=== PATIENT | female | born 1980 | race Hispanic/Latino ===

== ENCOUNTER 2016-08-27 10:16 | Emergency (ER) | payer OTHER, MEDICARE ==
[~2016-08-27 10:16] MED LIST: ABILIFY 15MG15 MG PO; ABILIFY20 M1 PO; ADVAIR 250-501 EACH INH; ASPIRIN CHILDRE81 MG PO; ATIVAN1 M1 PO; BLM PO; CEFDINIR300 MG PO; CLEOCIN HCL150 M1 PO; CLINDAMYCIN HY300 MG PO; CLINORIL 200MG200 MG PO; DILAUDID2 M1 PO; ESCITALOPRAM OX20 MG PO; ESCITALOPRAM20 MG PO; HYDROXYZINE PAM50 M1 PO; HYDROXYZINE PAM50 MG PO; LANTUS SOL100 UNIT/1 SC; LANTUS SOLOS100 U/ML; LATUDA60 M1 PO; LIORESAL 10MG T10 MG PO; LISINOPRIL10 MG PO; LITHIUM CARBON450 M1 PO; LITHIUM CARBON450 MG PO; METFORMIN HCL1000 M1 PO; NASONEX17 GM NASB; NEURONTIN100 M1 PO; NEURONTIN300 MG; NEXIUM40 M1 PO; NOVOLOG FL100 UNIT/1 SC; OXYCODONE HCL5 M1 PO; PERCOCET 325 MG1 TA2 PO; PERCOCET 5-3251 EACH PO; SYMBICORT 160/41 PUF INH; SYMBICORT 16010.2 GM INH; TAMIFLU 75MG75 MG PO; VICODIN5-300 PO; VICTOZA 3-0.6 MG/0.1 SC; VICTOZA6 MG/ML SC; VISTARIL25 MG PO; XANAX0.5 MG PO
--- NOTE | 2016-08-27 11:12 | ED HEADACHE COMPLAINT ---
History of Present Illness General Chief Complaint: Headache Stated Complaint: MIGRAINE, ?LUMP ON HEAD, WEAKNESS Source: patient, old records Exam Limitations: no limitations Vital Signs & Intake/Output Vital Signs & Intake/Output Vital Signs Date Time Temp Pulse Resp B/P B/P Pulse O2 O2 Flow FiO2 Mean Ox Delivery Rate 08/27 1319 98.3 81 16 133/81 95 Room Air 08/27 1215 98.3 80 14 126/80 95 Room Air 08/27 1021 98.5 82 118/69 96 Room Air Allergies Coded Allergies: Penicillins (Mild, HIVES 09/14/15) aspirin (Mild, HIVES 09/14/15) ibuprofen (Mild, HIVES 09/14/15) Reconcile Medications Aripiprazole (Abilify) 20 MG TABLET 1 TAB PO QAM MENTAL HEALTH (Reported) Budesonide/Formoterol Fumarate (Symbicort 160-4.5 Mcg Inhaler) 160 MCG-4.5 MCG/ ACTUATION HFA.AER.AD 2 PUF INH BID ASTHMA (Reported) Escitalopram Oxalate 20 MG TABLET 1 TAB PO DAILY MENTAL HEALTH (Reported) Esomeprazole (Nexium) 40 MG CAPSULE.DR 1 CAP PO DAILY GI (Reported) Fluticasone/Salmeterol (Advair 250-50 Diskus) 250 MCG-50 MCG/DOSE BLST.W.DEV 1 PUF INH BID ASTHMA (Reported) Gabapentin (Neurontin) 100 MG CAPSULE 1 CAP PO BID NEUROPATHY (Reported) Hydroxyzine Pamoate 50 MG CAPSULE 1 CAP PO TID ANXIETY (Reported) Insulin Aspart, Recombinant (Novolog Flexpen) (Unknown Strength) INSULN.PEN ( Unknown Dose) SC SEE SLIDING SCALE DIABETES (Reported) Insulin Glargine,Hum.rec.anlog (Lantus Solostar) 100 UNIT/ML (3 ML) INSULN.PEN 85 UNIT SC BID DIABETES (Reported) Liraglutide (Victoza 3-Tiago) 0.6 MG/0.1 ML (18 MG/3 ML) PEN.INJCTR 1.8 MG SC DAILY DIABETES (Reported) Willowbrook Carbonate (Willowbrook Carbonate ER) 450 MG TABLET.ER 1 TAB PO BID MENTAL HEALTH (Reported) Lorazepam (Ativan) 1 MG TABLET 1 TAB PO TID ANXIETY (Reported) Lurasidone HCl (Latuda) 60 MG TABLET 1 TAB PO DAILY MENTAL HEALTH (Reported) Metformin HCl 1,000 MG TABLET 1 TAB PO DAILY DIABETES (Reported) Metoclopramide HCl (Reglan) 10 MG TABLET 1 TAB PO Q6-8 PRN nausea/headache Mometasone Furoate (Nasonex) 50 MCG SPRAY.PUMP 1 SPRAY NASB DAILY PRN ALLERGIES (Reported) Oxycodone HCl 5 MG TABLET 1 TAB PO BIDP PRN PAIN (Reported) Triage Note: PER PT MIGRAINE SINCE 1700 YESTERDAY, ALSO HAS A LUMP TO TOP OF HEAD DENIES TRAUMA, Triage Nurses Notes Reviewed? yes : No Patient currently breastfeeds: No HPI: Patient is a 36-year-old female presents complaining of migraine headache that began at 5 PM yesterday. Pain was severe yesterday currently 8 out of 10. Patient took Tylenol yesterday with no improvement. Patient is prescribed chronic pain medication that she reports she has not taken due to wanting to wean herself off of medication. Patient also felt a "lump" to the top of her head. Area was more swollen yesterday. Area is painful the pain is mild currently, worsens with palpation. Patient denies photophobia, nausea, vomiting , fevers, chills, recent trauma. (KAT YAO) Past History Travel History Traveled to [place] past 21 day No Medical History Any Pertinent Medical History? see below for history EENT: NONE Cardiovascular: hypertension Respiratory: asthma Gastrointestinal: NONE Hepatic: NONE Renal: NONE Musculoskeletal: osteoarthritis Psychiatric: anxiety, depression, PANIC ATTACK Endocrine: diabetes Blood Disorders: NONE CHIEF MAINTENANCE SUPERVISOR/Reproductive: Surgical History Surgical History: tubal ligation Psychosocial History What is your primary language Lithuanian Tobacco Use: Never used Family History Hx Contributory? No (KAT YAO) Review of Systems Review of Systems Constitutional: Denies: chills, fever. Eyes: Denies: blurred vision, pain, photophobia. Ears, Nose, Throat, Mouth: Reports: no symptoms. Respiratory: Denies: cough, short of breath. Cardiovascular: Denies: chest pain. Gastrointestinal/Abdominal: Denies: abdominal pain, nausea, vomiting. Genitourinary: Reports: no symptoms. Musculoskeletal: Reports: no symptoms. Skin: Reports: see HPI. Neurological/Psychological: Reports: see HPI. Hematologic/Endocrine: Reports: no symptoms. Endocrine: Reports: no symptoms. Immunologic/Allergic: Reports: no symptoms. (KAT YAO) Physical Exam Physical Exam General Appearance: well developed/nourished, alert, awake Head: 0.5 cm nodular density to the superior scalp. Positive tenderness. No erythema or fluctuance. Eyes: Bilateral: normal appearance, PERRL, EOMI, other (normal funduscopic exam). Ears, Nose, Throat: normal pharynx, normal ENT inspection, hearing grossly normal Neck: normal inspection, supple, full range of motion, no midline tenderness Respiratory: normal breath sounds, chest non-tender, no respiratory distress, lungs clear Cardiovascular: regular rate/rhythm Gastrointestinal: soft, non-tender Back: normal inspection, normal range of motion Extremities: normal inspection, normal capillary refill, normal range of motion, no edema Psychiatric: awake, alert, oriented x 3 Cranial Nerves: normal hearing, normal speech, PERRL Coordination/Gait: normal finger to nose, normal gait Motor/Sensory: no motor/sensory deficits Skin: normal color, warm/dry Lymphatic: no anterior cervical dameon Core Measures Severe Sepsis Present: No Septic Shock Present: No (KAT YAO) Progress Differential Diagnosis: carotid dissection, cav sinus thromb, cluster LAMB, IC mass/tumor, intracranial Hem., meningitis, migraine LAMB, musculoskeletal pain, sinusitis, subarach. Hem., tension LAMB, temporal arteritis, viral cephalgia, scalp abscess, scalp cyst, lymphadenopathy Plan of Care: Current Medications Sig/Meghan Start time Last Medication Dose Stop Time Status Admin Metoclopramide HCl 10 MG ONCE ONE 08/27 1130 UNVr (Reglan) 08/27 1131 Sodium Chloride 1,000 ML BOLUS ONE 08/27 1130 UNVr (Normal Saline 0.9%) 08/27 1229 1255: Patient feeling significantly improved after IV fluids and Reglan. No acute neurologic abnormalities. Pain consistent with previous migraine headaches. Patient afebrile, nontoxic appearing. Appears stable for discharge and outpatient follow-up. (KAT YAO) Departure Departure Time of Disposition: 1258 Disposition: HOME OR SELF CARE Condition: Stable Clinical Impression Primary Impression: Migraine headache Qualifiers: Migraine type: unspecified Status migrainosus presence: without status migrainosus Intractability: intractable Qualified Code: G43.919 - Migraine, unspecified, intractable, without status migrainosus Referrals: KAYLIN CASON APRN (PCP/Family) Additional Instructions: Follow-up with your primary doctor within 1 week for further evaluation. Call on Monday for appointment. Warm compresses to the area of the lump on the top of her head for 10-20 minutes 4-5 times a day. Return to the emergency department if fevers, numbness, weakness, or worsening of symptoms. Departure Forms: Customer Survey General Discharge Information Prescriptions: Current Visit Scripts Metoclopramide HCl (Reglan) 1 TAB PO Q6-8 PRN nausea/headache #10 TAB (KAT YAO) PA/INTENSIVIST Co-Sign Statement Statement: ED Attending supervision documentation- [] I saw and evaluated the patient. I have also reviewed all the pertinent lab results and diagnostic results. I agree with the findings and the plan of care as documented in the PA's/INTENSIVIST's documentation. [X] I have reviewed the ED Record and agree with the PA's/INTENSIVIST's documentation. [] Additions or exceptions (if any) to the PAs/INTENSIVIST's note and plan are summarized below: [] (MAMADOU SANCHEZ,CLAYTON Curtis)
[2016-08-27] MEDS ORDERED: REGLAN10 M1 PO (13:01)
[2016-08-27 13:19] VITALS: BP 133/81
== END 2016-08-27 13:17 ==
LOC: ERH 10:16
DX: G43.909 Migraine, unspecified, not intractable, without status migrainosus (principal)
CPT/HCPCS: 96365; J2765

== ENCOUNTER 2018-01-05 15:17 | Emergency (ER) | payer OTHER ==
[~2018-01-05] VITALS: Ht 154.9 cm; Wt 101.6 kg
[~2018-01-05 15:17] MED LIST changes: +ASPIRIN81 M4 PO; +CYCLOBENZAPRINE10 M1 PO; +MONTELUKAST SOD10 M1 PO; +REGLAN10 M1 PO; +TRAMADOL HCL50 M1 PO
[2018-01-05 15:20] VITALS: BP 102/63
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
[2018-01-05] MEDS ORDERED: ACETAMINOPHEN325 M2 PO (16:29)
[2018-01-05] MEDS ORDERED: REGLAN10 M1 PO (16:29)
== END 2018-01-05 16:48 ==
LOC: ERH 15:17
DX: S16.1XXA Strain of muscle, fascia and tendon at neck level, initial encounter (principal); R51 Headache; V49.40XA Driver injured in collision with unspecified motor vehicles in traffic accident, initial encounter; Y92.9 Unspecified place or not applicable; I10 Essential (primary) hypertension; J45.909 Unspecified asthma, uncomplicated; K21.9 Gastro-esophageal reflux disease without esophagitis
CPT/HCPCS: 96374; 96375; J0131; J2765